=== PATIENT | male | born 1995 | race Caucasian/White ===

== ENCOUNTER 2023-02-22 08:11 | Day surgery (SDC) | payer MEDICAID ==
[~2023-02-22] VITALS: Ht 170.2 cm; Wt 84.8 kg
[2023-02-22] MEDS ORDERED: MEPERIDINE 50 MG/ML VIAL ONE (08:49)
[2023-02-22] MEDS ORDERED: MIDAZOLAM HCL 5 MG/5 ML VIAL ONE (08:49)
[2023-02-22] MEDS ORDERED: ONDANSETRON HCL 4 MG/2 ML VIAL ONE (09:43)
[2023-02-22 13:39] VITALS: BP_SYST 102
== END 2023-02-22 10:54 | disposition home or self-care (01) ==
LOC: SDS 08:11 → SMU 08:12 → SDS 10:54
PROVIDERS: ATTEND Internal Medicine Gastroenterology
DX: R10.13 Epigastric pain (principal); K21.00 Gastro-esophageal reflux disease with esophagitis, without bleeding; K29.50 Unspecified chronic gastritis without bleeding; K29.80 Duodenitis without bleeding; F17.210 Nicotine dependence, cigarettes, uncomplicated
CPT/HCPCS: 43239; 87081; 36415; 88305; 88312; 88313; 99152; G0378; J2250; J2405; J2175

== ENCOUNTER 2023-07-10 06:46 | Day surgery (SDC) | payer MEDICAID ==
[~2023-07-10] VITALS: Ht 170.2 cm; Wt 84.9 kg
[2023-07-10] MEDS ORDERED: CEFAZOLIN SOD 2 GM in D5W 50 ML IV ONE (07:00)
[2023-07-10] MEDS ORDERED: SUCCINYLCHOLINE CHLORIDE 20 MG/ML(QUELICIN) ONE (08:14)
[2023-07-10] MEDS ORDERED: SEVOFLURANE 15 MIN GAS INH ONE (08:14)
[2023-07-10] MEDS ORDERED: LIDOCAINE/EPI 1% 1:100000 20 ML VIAL ONE (08:14)
[2023-07-10] MEDS ORDERED: KETOROLAC TROMETHAMINE 30 MG VIAL ONE (08:14)
[2023-07-10] MEDS ORDERED: PROPOFOL 200MG/ 20ML VIAL (DIPRIVAN) IV ONE (08:14)
[2023-07-10] MEDS ORDERED: ONDANSETRON HCL 4 MG/2 ML VIAL ONE (08:14)
[2023-07-10] MEDS ORDERED: MIDAZOLAM HCL/PF 2 MG/2 ML SYRINGE ONE (08:14)
[2023-07-10] MEDS ORDERED: NS 1000 ML IV.SOLN IV ONE (08:14)
[2023-07-10] MEDS ORDERED: WATER FOR IRRIGATION,STERILE 1,000 ML IRRIG.SOLN IR ONE (08:14)
[2023-07-10] MEDS ORDERED: NS IRRIG SOLN 1000 ML IR ONE (08:14)
[2023-07-10] MEDS ORDERED: ACETAMINOPHEN I.V. 1000 MG 100 ML IV ONE ×2 (09:45→11:06)
[2023-07-10] MEDS ORDERED: ONDANSETRON HCL 4 MG/2 ML VIAL IVP PRN ×2 (09:45→12:00)
[2023-07-10] MEDS ORDERED: HYDROmorphone 1 MG/ML INJ. CARTRIDGE IVP PRN (09:45)
[2023-07-10] MEDS ORDERED: KETOROLAC TROMETHAMINE 30 MG VIAL IVP PRN (09:45)
[2023-07-10] MEDS ORDERED: HYDROcodone/ACETAMIN 5-325 MG TAB (NORCO/ VICODIN) PO PRN (12:00)
[2023-07-10] MEDS ORDERED: ONDANSETRON 4 MG ODT TAB PO PRN (12:00)
[2023-07-10 15:00] VITALS: BP_SYST 112; PULSE 62; RESP 17; TEMP 97.9; O2SAT 99
== END 2023-07-10 13:05 | disposition home or self-care (01) ==
LOC: SDS 06:46 → SMU 06:47 → SDS 13:05
PROVIDERS: ATTEND Otolaryngology
DX: J34.2 Deviated nasal septum (principal); J34.3 Hypertrophy of nasal turbinates
CPT/HCPCS: 87081; 30520; 30140; 71045; 88305; J0690; J1885; J3465; J2405; J2704; J0330; J7060; J7030; J0131; 88304; 88311